=== PATIENT | male | born 1940 | race Caucasian/White ===

== ENCOUNTER 2020-02-17 15:59 | Emergency (ER) | payer MEDICARE, SELFPAY ==
[2020-02-17 16:10] VITALS: BP 138/82; PULSE 118; RESP 20; TEMP 36.6; O2SAT 100
--- NOTE | 2020-02-17 16:35 | ED.WOUNDLAC ---
HPI - Wound/Laceration General Chief Complaint: Wound/Laceration Stated Complaint: Laceration on eyebrow Time Seen by Provider: 02/17/20 16:19 Source: patient, family and RN notes reviewed Mode of arrival: ambulatory Limitations: dementia and other (Parkinson's) History of Present Illness HPI narrative: Patient presents today with an injury to the right eyebrow/forehead that was sustained around 8:00 this morning. states patient was in the garage and she is unsure of the mechanism of his injury. Patient has history of dementia and Parkinson's and is unclear on the mechanism as well. Denies loss of consciousness. Denies neck pain, current headache, dizziness, lightheadedness, vision changes, nausea or vomiting. He is currently pain-free. He does not take blood thinners or aspirin. He is up-to-date on his tetanus vaccine. Related Data Home Medications Medication Instructions Recorded Confirmed alogliptin 25 mg tablet 25 mg PO DAILY 07/10/19 02/17/20 carbidopa 25 mg-levodopa 100 mg 1 tablet PO QID tablet 07/10/19 02/17/20 tablet carbidopa 50 mg-levodopa 200 1 tablet PO Q4H tablet 07/10/19 02/17/20 mg-entacapone 200 mg tablet finasteride 5 mg tablet 5 mg PO DAILY 07/10/19 02/17/20 metformin 1,000 mg tablet 1,000 mg PO BID 07/10/19 02/17/20 pramipexole 1.5 mg tablet 0.375 mg PO TID tablet 07/10/19 02/17/20 venlafaxine 75 mg tablet 75 mg PO DAILY 07/10/19 02/17/20 vit C 250 mg-E 200 unit-zinc 40 1 tablet PO BID 07/10/19 02/17/20 mg-copper 1 vf-ahuhld-jofvyr capsule Allergies Allergy/AdvReac Type Severity Reaction Status Date / Time levofloxacin Allergy Unknown Delirium Verified 07/10/19 16:13 Penicillins Allergy Unknown Urticaria Verified 07/10/19 16:13 Review of Systems Review of Systems: Narrative: CONSTITUTIONAL: Denies body aches, fever, chills, or sweats. EYES: Denies visual changes, redness, or discharge. ENT: Denies rhinorrhea, congestion, sore throat, or otalgia. CARDIOVASCULAR: Denies chest pain, palpitations, or edema. RESPIRATORY: Denies cough or dyspnea. GASTROINTESTINAL: Denies abdominal pain, nausea, vomiting, or diarrhea. GENITOURINARY: Denies dysuria or hematuria. SKIN: Denies rash, itching. + Wound to right eyebrow MUSCULOSKELETAL: Denies back pain, joint pain, or myalgia. NEUROLOGIC: Denies headache, numbness, tingling, or weakness. PSYCH: Denies depression or anxiety. [facility] Past Medical History Medical History (Updated 02/17/20 @ 16:41 by Patricia Barba, [facility], ) Benign prostatic disease Benign prostatic hyperplasia BPH w/o urinary obs/LUTS Chronic left shoulder pain Dementia, unspecified, without behavioral disturbance Depression Dyslipidemia Hypercholesterolemia Hypomagnesemia Insomnia Macular degeneration Parkinson disease Type 2 diabetes mellitus without complication, without long-term current use of insulin Surgical History Surgical History History of brain surgery deep brain stimulation Social History Social History Smoking status: Former smoker Second hand tobacco smoke exposure: No Smoking end date: 06/26/79 Alcohol intake: current Substance use: never Substance use type: does not use Gender identity (if verbalized by the patient): Male Comments At time of signature, I have reviewed and agree with nursing past medical, surgical, social and family history unless otherwise noted. Please see nursing chart for further information. There is no relevant family history pertinent to the presenting complaint Exam Narrative: Exam Narrative: GENERAL: Well-appearing, well-nourished, and in no acute distress. HEAD: Normocephalic, atraumatic. EYES: EOMI. PERRL. No redness or drainage. Conjunctivae normal.. Moderate hematoma to the right eyebrow with a 2 x 0.5 cm linear skin avulsion. No active bleeding. No tenderness to the orbit. ENT: Mu
== END 2020-02-17 16:48 | disposition home or self-care (01) ==
PROVIDERS: Emergency Provider Nurse Practitioner; PCP Family Medicine
DX: S01.101A Unspecified open wound of right eyelid and periocular area, initial encounter (principal); X58.XXXA Exposure to other specified factors, initial encounter; Z87.891 Personal history of nicotine dependence; N40.0 Benign prostatic hyperplasia without lower urinary tract symptoms; F32.9 Major depressive disorder, single episode, unspecified; E78.5 Hyperlipidemia, unspecified; E78.00 Pure hypercholesterolemia, unspecified; G20 Parkinson's disease; F02.80 Dementia in other diseases classified elsewhere, unspecified severity, without behavioral disturbance, psychotic disturbance, mood disturbance, and anxiety; E11.9 Type 2 diabetes mellitus without complications; H35.30 Unspecified macular degeneration; Z79.84 Long term (current) use of oral hypoglycemic drugs
CPT/HCPCS: 99212; G0463

== ENCOUNTER 2020-12-21 10:00 | Outpatient (RCR) | payer MEDICARE, SELFPAY ==
--- NOTE | 2020-11-16 13:49 | PTOPEVAL ---
PHYSICAL THERAPY EVALUATION AND PLAN OF CARE Thank you for referring Alejandro Oliva to [facility].? The patient is scheduled to be seen for therapy? 1-2x/week for 4 weeks to accommodate patient's schedule. Please review, sign, date and return this plan of care BELINDA. I agree with and certify that the following plan of care is medically necessary. Referring Physician Date Attending Provider: Gracy Meza NP Evaluation Outpatient Past Medical History Neurological History Hx Cerebrovascular Accident (CVA) Yes Hx Dementia Yes Hx Parkinson's Disease Yes: deep brain stimulator Cardiovascular History Hx Hypercholesterolemia Yes Hx Hypertension Yes Diagnosis Parkinson's Disease Onset 2003 Subjective Information Alejandro is here today with Query Text:As Reported By Patient/ diagnosis of Parkinson's Family Disease with increased unsteadiness on his feet and frequent falls. His assists him with dressing and bathing and other ADLs. She is in the house for safety. He has a deep brain stimulator and takes carbadopa-levadopa QID and two other parkinson's medications. States that the last time he fell yeseterday and has had ~30 falls in the last month. States that his feet freeze before he falls. States he usually gets up off the floor himself, but sometimes his helps him get up. Reports he has no injuries from these falls. States that his left shoulder has been hurting and he has burning teeth. symptoms of PD: tremor of hands, freezing gait, decreased voice loudness, decreased amplitude; Prior Level of Function Home Setting Environmental Barriers Elevator Cargiver Responsibilities Comment uses a U step wheeled walker; has a chair lift Mobility Assistive Devices (Used Last 3 Walker, Wheeled Months) Pain Assessment Timing of Pain Assessment Timing of Pain Assessment Assessment Self Report Self Report Pain Level 0 Pain Score Pain Score 0: Self Report Additional Pain Score Comments does have back pain that
--- NOTE | 2020-12-23 08:24 | PCPTNOTE ---
Patient called & cancelled scheduled appointment this date due having outpatient surgery this morning. I will call back to follow-up and determine next steps for therapy.
--- NOTE | 2021-01-05 08:54 | PCPTNOTE ---
Patient arrived to participate in physical therapy re-assessment. notified me that he was in the hospital Monday night, 01/03, for chest pain. They found a Pulmonary embolism. He was discharged from ED with blood thinners and instructions to follow-up with primary care physician. Patient reports that he continues to have chest pain and pain when he takes a deep breath. He was willing to participate in physical therapy; however, due to findings of ED visit, I need a clearance from PCP to continue physical therapy. He has an appointment with PCP on , 01/07. and patient state understanding the need to cancel this appointment and will call after appointment with PCP to determine further therapy needs at this time.
--- NOTE | 2021-01-21 17:07 | PCPTNOTE ---
PHYSICAL THERAPY DISCHARGE NOTE Attending Provider: Gracy Meza NP Patient:Alejandro Oliva Date of :1940 Patient has not returned for any further treatments since 12/21/2020, therefore he will be discharged at this time. Patient?s initial visit was on 11/16/2020. He arrived to an appointment on 01/05/2021 after a hospitalization with findings of a PE. I informed patient that I would need him to follow up with physician prior to being able to participate in physical therapy. We have not heard from him or his since this time. Thank you for referring this patient to [facility]. Please review, sign, date and return this discharge summary BELINDA. I have been updated about the patient's current status and I agree with discharge from the above service at this time. Referring Physician Date
== END 2021-02-02 13:42 | disposition home or self-care (01) ==
LOC: ANHPT 10:00
PROVIDERS: PCP Family Medicine; Visit Provider Nurse Practitioner
DX: G20 Parkinson's disease (principal); R26.81 Unsteadiness on feet
CPT/HCPCS: 97110; 97116; 97162

== ENCOUNTER 2021-01-03 14:20 | Emergency (ER) | payer MEDICARE, SELFPAY ==
[2021-01-03] VITALS (14 sets, daily range): BP systolic 109–145; BP diastolic 62–75; PULSE 66–84; RESP 16–24; TEMP 36.1; O2SAT 96–100
--- NOTE | ~2021-01-03 | CT_ITS ---
EXAMINATION: CTA chest PE abdomen pel DATE: 01/03/2021 19:13 CDT INDICATION: Chest and abdomen pain TECHNIQUE: Computed tomographic angiography (CTA) of the chest, abdomen, and pelvis was performed wit hout and with 100 mL Omnipaque-350 intravenous contrast. The dose-length product was 688.37 mGy-cm. M aximum intensity projection 3D-reconstructions of the aorta and other arteries were constructed by jonathan e technologist on a separate workstation. Automated exposure control and iterative reconstruction elijah hnique were employed. COMPARISON: None. FINDINGS: CHEST CTA: Study is technically adequate. There are filling defects in right upper lobe segmental pulmonary nickolas yesenia, consistent with pulmonary embolism, small thrombus burden. Mild atherosclerosis of the aorta an d coronary arteries. Cardiomegaly. No significant pleural or pericardial effusion. No thoracic lympha denopathy. No endobronchial lesions. Dependent atelectasis. No suspicious pulmonary nodules or masses . ABDOMEN AND PELVIS CTA: Fatty infiltration of the liver. There are gallstones. Calcified granulomas of the spleen. The pancre as and adrenal glands are unremarkable. There are bilateral renal cysts, largest in the right kidney measuring 4.8 cm. There is atherosclerosis. Small hiatal hernia. No evidence for aneurysm. Moderate c olonic fecal loading. Fat-containing left inguinal hernia. Prostate gland is enlarged. No lymphadenop athy. Mild thickening of the gastric wall, likely due to underdistention. No free air or free fluid. There are changes of spinal fusion at L2-S1. There is retrolisthesis at L3-4. There are laminectomy c hanges at L3-L5. There is lucency surrounding the pedicle screws at L2, suspicious for loosening. IMPRESSION: 1. Filling defects right upper lobe segmental pulmonary arteries, consistent with pulmonary embolism, small thrombus burden. 2: Cholelithiasis. Reviewed, dictated and finalized at location A. IMPRESSION: 1. Filling defects right upper lobe segmental pulmonary arteries, consistent wi pulmonary embolism, small thrombus burden. 2: Cholelithiasis.
--- NOTE | ~2021-01-03 | XR_ITS ---
XR chest 2V 01/03/2021 14:59 Indication: Chest pain and cough for 4-5 days Procedure: AP and lateral views of the chest Comparison: 07/13/2018 Findings: There is a battery pack with leads overlying the left thorax. Heart size normal. Shallow in spiration with crowding of the pulmonary vessels. No focal air space disease, pulmonary edema, pleura l effusion or suspected pneumothorax. Moderate glenohumeral joint osteoarthritis on the left. Impression: 1: No acute cardiopulmonary disease. Reviewed, dictated and finalized at location A. Impression: 1: No acute cardiopulmonary disease.
--- NOTE | 2021-01-03 14:30 | ECG_ITS ---
Measurements Intervals [place] Rate: 78 P: 129 OH: 159 QRS: 21 QRSD: 146 T: 11 QT: 385 QTc: 439 Interpretive Statements SINUS RHYTHM RIGHT BUNDLE BRANCH BLOCK BASELINE ARTIFACT- I, II, III, AVR, AVL, AVF, V1-V6 ABNORMAL ECG Electronically Signed On 01-03-2021 18:27:22 CDT by Willian Calzada D.O.
[2021-01-03 15:38] LABS: Basophils Percent Auto 0.6 % (0.2-1.2); Eosinophils Absolute Auto 0.1 K/mm3 (0-0.3); Hematocrit 35.7 % (42.0-52.0); Hemoglobin 11.1 g/dL (14.0-18.0); Immature Granulocyte Absolute 0.03 K/mm3 (0.00-0.031); Immature Granulocyte Percent A 0.4 % (0-0.5); Lymphocytes Absolute Auto 1.23 K/mm3 (0.9-3.2); Lymphocytes Percent Auto 17.7 % (18.3-44.2); Mean Corpuscular HGB Conc 31.1 g/dl (32-36); Mean Corpuscular Volume 93.2 fl (80-100); Mean Platelet Volume 10.7 fl (7.4-10.4); Monocytes Absolute Auto 0.5 K/mm3 (0.1-0.6); Monocytes Percent Auto 6.8 % (2.6-8.5); Neutrophils Percent Auto 72.5 % (45.5-73.1); Platelet Count Result 210 k/mm3 (150-375); Red Blood Count 3.83 M/mm3 (4.6-6.20); Red Cell Distribution Width 14.4 % (11.5-14.5); White Blood Count 6.9 K/mm3 (4.5-10.0)
[2021-01-03 15:50] LABS: Anion Gap 11 mmol/L (8-16); Blood Urea Nitrogen 34 mg/dL (9-20); Calcium 9.4 mg/dL (8.4-10.2); Carbon Dioxide 23 mmol/L (22-30); Chloride 103 mmol/L (98-107); Estimated CRCL calculation 57 ml/min; Estimated Glomerular Filt Rate > 60; Glucose 351 mg/dL (75-110); Potassium 4.7 mmol/L (3.4-5.0); Sodium 137 mmol/L (137-145)
[2021-01-03 16:02] LABS: Troponin I < 0.012 ng/mL (0.000-0.034)
[2021-01-03 16:06] LABS: Prothrombin Time 12.6 Seconds (11.1-14.7)
[2021-01-03 16:08] LABS: Partial Thromboplastin Time 27.5 SECONDS (22.3-36.8)
--- NOTE | 2021-01-03 18:02 | ED.CHESTPAIN ---
HPI - Chest Pain General Chief Complaint: Chest Pain Stated Complaint: chest pain for 5 days after lifting Time Seen by Provider: 01/03/21 17:46 Source: patient, family and RN notes reviewed Mode of arrival: ambulatory Limitations: other (parkinsons) History of Present Illness HPI narrative: This is a 80 year old male with history of Parkinson's , DM who presens for evaluation of midsternal chest pain. Patient is presents with . She states patient lifting heavy bag on Grout on . Patient has been complaining intermittent nonradiating midsternal chest pain. He states this pain last for a few minutes. He notices his pain when he leans forward and when he coughs. He denies nausea,vomiting, dizziness or shortness of breath. HE does reports a mild cough. He has been taking tylenol for his pain and he states this helps. He denies cardiac history Related Data Home Medications Medication Instructions Recorded Confirmed alogliptin 25 mg tablet 25 mg PO DAILY 07/10/19 12/22/20 carbidopa 25 mg-levodopa 100 mg 1 tablet PO QID tablet 07/10/19 12/22/20 tablet finasteride 5 mg tablet 5 mg PO DAILY 07/10/19 12/22/20 metformin 1,000 mg tablet 1,000 mg PO BID 07/10/19 12/22/20 pramipexole 1.5 mg tablet 0.375 mg PO TID tablet 07/10/19 12/22/20 venlafaxine 75 mg tablet 75 mg PO DAILY 07/10/19 12/22/20 vit C 250 mg-vit E 90 mg-zinc 40 1 tablet PO BID 07/10/19 12/22/20 mg-copper 1 [id number] capsule carbidopa ER 50 mg-levodopa 200 mg 1 tablet PO QID 10/12/20 12/22/20 tablet,extended release donepezil 10 mg tablet 10 mg PO QHS 10/12/20 12/22/20 entacapone 200 mg tablet 200 mg PO QID tablet 10/12/20 12/22/20 melatonin 10 mg capsule 20 mg PO QHS cap 10/12/20 12/22/20 empagliflozin 25 mg tablet 12.5 mg PO DAILY tablet 12/22/20 12/22/20 Allergies Allergy/AdvReac Type Severity Reaction Status Date / Time levofloxacin Allergy Unknown Delirium Verified 01/03/21 14:25 Penicillins Allergy Unknown Urticaria Verified 01/03/21 14:25 Review of Systems Review of Systems: All systems reviewed & are unremarkable except as noted in HPI and below PMFSH Past Medical History Medical History BPH w/o urinary obs/LUTS Chronic left shoulder pain Dementia, unspecified, without behavioral disturbance Depression Dyslipidemia Hypercholesterolemia Hypomagnesemia Insomnia Macular degeneration Parkinson disease Type 2 diabetes mellitus without complication, without long-term current use of insulin Surgical History Surgical History History of brain surgery deep brain stimulation Family History Family History Mother Diabetes mellitus Father Family history of cardiovascular disease Other Family history of malignant neoplasm Social History Social History Smoking status: Former smoker Second hand tobacco smoke exposure: No Smoking end date: 06/26/79 Alcohol intake: current Alcohol use details: consumes 1 glass of wine weekly Substance use: never Substance use type: does not use Gender identity (if verbalized by the patient): Male Exam Const: General: alert Orientation/consciousness: patient oriented x3 Eyes: EOM: EOMs intact bilaterally Resp: Effort & Inspection: normal respiratory effort and no retractions Auscultation: clear to auscultation bilaterally Cardio: Rate: regular rate Rhythm: regular rhythm Heart sounds: no murmurs GI: GI Palp: Yes Soft to palpation, No Tenderness to palpation present (GI) and No Guarding due to palpation present (GI) Auscultation: normal bowel sounds Skin: General skin exam: normal color Rashes: no rashes Neuro: General: patient oriented x3, moves all extremities and CN's II-XI intact bilaterally Other: tremors Course Reevaluati
[2021-01-03 18:13] LABS: Troponin I < 0.012 ng/mL (0.000-0.034)
[2021-01-03 18:25] LABS: D Dimer 1.43 ug/mL (<0.48); Lipase 526 U/L (23-300)
[2021-01-03] MEDS: ENOXAPARIN 80 MG/0.8 ML SYRINGE 70 MG SUB-Q (19:43)
--- NOTE | 2021-01-03 22:16 | PC.NURSE ---
Not in room at present. ama form signed and ED Charge and ED MD aware. IV removed with catheter intact.
--- NOTE | 2021-01-04 03:34 | PC.NURSE ---
Pt's used call light and informed ed dental secretary she wanted to leave and take pt home. this RN to pt room and pt's stated It's been 7 hours and no one has waited on us and nothing is happening and i'm going to take hime home. it's been 7 hours. it's taking too long. This RN apologized and requested to let ED MD know family concerns. after discussion with ED MD, pt's , and return call from pt's pcp, pt and left dept in [place].
== END 2021-01-03 21:44 | disposition left against medical advice (07) ==
LOC: ANHED 20:23 → ANH3MEDSUR 21:49
PROVIDERS: Emergency Medicine; Emergency Provider General Practice; PCP Family Medicine
DX: I26.99 Other pulmonary embolism without acute cor pulmonale (principal); R07.2 Precordial pain; G20 Parkinson's disease; E11.9 Type 2 diabetes mellitus without complications; N40.0 Benign prostatic hyperplasia without lower urinary tract symptoms; F03.90 Unspecified dementia, unspecified severity, without behavioral disturbance, psychotic disturbance, mood disturbance, and anxiety; E78.5 Hyperlipidemia, unspecified; H35.30 Unspecified macular degeneration; Z79.84 Long term (current) use of oral hypoglycemic drugs; Z87.891 Personal history of nicotine dependence; K80.20 Calculus of gallbladder without cholecystitis without obstruction; I45.10 Unspecified right bundle-branch block
CPT/HCPCS: 36415; 71046; 71275; 74177; 80048; 83690; 84484; 85025; 85380; 85610; 85730; 93005; 96372; 99284; J1650; Q9967

== ENCOUNTER 2021-02-05 10:06 | Outpatient (CLI) | payer MEDICARE, SELFPAY ==
--- NOTE | ~2021-02-05 | US_ITS ---
EXAMINATION: US thyroid DATE: 02/05/2021 10:39 INDICATION: Nontoxic single thyroid nodule. TECHNIQUE: Multiple ultrasound images of the thyroid were obtained. COMPARISON: None. FINDINGS: The right thyroid lobe measures 4.4 x 2.1 x 2.1 cm. The left thyroid lobe measures 3.8 x 2.2 x 1.9 c m. In the right thyroid lobe, there is a 9 mm predominantly solid, isoechoic, mvkba-gjlh-eonr nodule with lobulated margin without echogenic foci (TI-RADS TR4). In the right thyroid lobe, there is a 13 mm mixed cystic and solid, hypoechoic, aikkz-cwuo-jijw nodule with smooth margin without echogenic f oci (TR3). In the left thyroid lobe, there is a 9 mm mixed cystic and solid, hypoechoic, sheup-ihtl-s all nodule with smooth margin without echogenic foci (TR3). There are smaller subcentimeter nodules i n the thyroid. IMPRESSION: 1. Small thyroid nodules, likely not clinically significant. No follow-up is needed. Reviewed, dictated and finalized at location A. IMPRESSION: 1. Small thyroid nodules, likely not clinically significant. No follow-up is ne eded.
== END 2021-02-05 10:07 | disposition home or self-care (01) ==
PROVIDERS: PCP Family Medicine; Visit Provider Family Medicine
DX: E04.2 Nontoxic multinodular goiter (principal)
CPT/HCPCS: 76536

== ENCOUNTER 2021-02-11 15:10 | Outpatient (CLI) | payer MEDICARE, SELFPAY ==
[2021-02-11 15:40] LABS: INR 2.1; Prothrombin Time 22.9 Seconds (11.1-14.7)
== END 2021-02-11 15:11 | disposition home or self-care (01) ==
PROVIDERS: PCP Family Medicine; Visit Provider Family Medicine
DX: Z51.81 Encounter for therapeutic drug level monitoring (principal); Z79.01 Long term (current) use of anticoagulants
CPT/HCPCS: 36415; 85610

== ENCOUNTER 2021-02-25 15:34 | Emergency (ER) | payer OTHER, MEDICARE, SELFPAY ==
[2021-02-25] VITALS (22 sets, daily range): BP systolic 141–181; BP diastolic 69–93; PULSE 90–107; RESP 14–37; O2SAT 98–100
--- NOTE | ~2021-02-25 | CT_ITS ---
EXAMINATION: CT brain wo con DATE: 02/25/2021 16:21 INDICATION: Altered mental status. TECHNIQUE: Computed tomography (CT) of the head was performed without intravenous contrast. The mA wa s adjusted according to patient size. Iterative reconstruction technique was employed. The dose-lengt h product was 605.33 mGy-cm. COMPARISON: None FINDINGS: There are bilateral deep brain stimulators. The right-sided implant tip is in the right constanza tiform nucleus. The left-sided implant tip abuts the superior aspect of the medial left temporal lobe . There is chronic encephalomalacia in the frontal lobes along the course of the electrodes. There is no intracranial hemorrhage, acute infarction, or abnormal intracranial mass lesion. The ventricles a re normal in size. There is mild mucosal thickening in the paranasal sinuses. The mastoid air cells a re normal. There are likely changes of ocular lens replacement surgeries. IMPRESSION: 1. Chronic encephalomalacia in the frontal lobes along the deep brain stimulators. Reviewed, dictated and finalized at location A. IMPRESSION: 1. Chronic encephalomalacia in the frontal lobes along the deep brain stimulato rs.
--- NOTE | ~2021-02-25 | XR_ITS ---
EXAMINATION: XR shunt series DATE: 02/25/2021 18:08 INDICATION: Head and neck injury. TECHNIQUE: 5 views of a shunt series were obtained. COMPARISON: Chest 2 views 01/03/2021 FINDINGS: The chest demonstrates clear lungs without pneumonia, pleural effusion, or pneumothorax. Th e heart size is normal. There are deep brain stimulators bilaterally with electronic device in left a nterior chest. There are changes of posterior fusion procedure in lumbosacral spine. IMPRESSION: 1. Deep brain stimulators present. Reviewed, dictated and finalized at location A.
--- NOTE | ~2021-02-25 | CT_ITS ---
EXAMINATION: CT cervical spine wo con DATE: 02/25/2021 16:21 INDICATION: Neck injury. Fall down stairs. TECHNIQUE: Computed tomography (CT) of the cervical spine was performed without intravenous contrast. Automated exposure control and iterative reconstruction technique were employed. The dose-length pro duct was 242.17 mGy-cm. 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 There is 6 mm anterolisthesis of C2 on C3. C1 r ing is developmentally small with moderate central canal stenosis. There is 2 mm retrolisthesis of C3 on C4 and C5 on C6 and 2 mm anterolisthesis of C7 on T1. There is mild chronic anterior wedging of C 3 vertebral body. There is mild chronic height loss of C4-C7 vertebral bodies. There is severely decr eased disc height from C2-C3 through C6-C7 with endplate remodeling. 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 There is severe bi lateral facet joint osteoarthritis. There is moderate bilateral neural foraminal stenosis. There is m oderate central canal stenosis. C3-C4: There is severe bilateral uncovertebral joint osteoarthritis. There is severe bilateral facet joint osteoarthritis. There is moderate right and mild left neural foraminal stenosis. There is mild central canal stenosis. C4-C5: There is severe bilateral uncovertebral joint osteoarthritis. There is severe bilateral facet joint osteoarthritis. There is mild right and moderate left neural foraminal stenosis. There is mild central canal stenosis. C5-C6: There is severe bilateral uncovertebral joint osteoarthritis. There is mild bilateral facet adilson int osteoarthritis. There is moderate bilateral neural foraminal stenosis. There is mild central leonardo l stenosis. C6-C7: There is severe bilateral uncovertebral joint osteoarthritis. There is severe bilateral facet joint osteoarthritis. There is mild bilateral neural foraminal stenosis. There is mild central canal stenosis. C7-T1: There is no uncovertebral joint osteoarthritis. There is severe bilateral facet joint osteoart hritis. There is mild left neural foraminal stenosis. There is no central canal stenosis. IMPRESSION: 1. No fracture. 2. Severe cervical spondylosis. Reviewed, dictated and finalized at location A.
--- NOTE | 2021-02-25 16:11 | PC.NURSE ---
Pt off floor to CT scan
--- NOTE | 2021-02-25 16:16 | PC.NURSE ---
patient CANNOT receive MRI due to deep brain stimulator
[2021-02-25 16:43] LABS: Basophils Percent Auto 0.4 % (0.2-1.2); Eosinophils Absolute Auto 0.1 K/mm3 (0-0.3); Eosinophils Percent Auto 1.8 % (0-4.4); Hematocrit 40.1 % (42.0-52.0); Hemoglobin 12.5 g/dL (14.0-18.0); Immature Granulocyte Absolute 0.02 K/mm3 (0.00-0.031); Immature Granulocyte Percent A 0.4 % (0-0.5); Lymphocytes Absolute Auto 1.32 K/mm3 (0.9-3.2); Lymphocytes Percent Auto 23.1 % (18.3-44.2); Mean Corpuscular HGB Conc 31.2 g/dl (32-36); Mean Corpuscular Hemoglobin 28.2 pg (26-34); Mean Corpuscular Volume 90.3 fl (80-100); Mean Platelet Volume 10.2 fl (7.4-10.4); Monocytes Absolute Auto 0.5 K/mm3 (0.1-0.6); Monocytes Percent Auto 8.1 % (2.6-8.5); Neutrophils Absolute Auto 3.8 K/mm3 (1.3-6.7); Neutrophils Percent Auto 66.2 % (45.5-73.1); Platelet Count Result 227 k/mm3 (150-375); Red Blood Count 4.44 M/mm3 (4.6-6.20); Red Cell Distribution Width 14.2 % (11.5-14.5); White Blood Count 5.7 K/mm3 (4.5-10.0)
[2021-02-25] MEDS: MORPHINE SULFATE (*CRX) 4 MG/ML INJ IV PUSH (16:43)
[2021-02-25] MEDS: ONDANSETRON INJ 4 MG/2 ML VIAL IV PUSH (16:43)
[2021-02-25 16:53] LABS: INR 1.7; Prothrombin Time 19.6 Seconds (11.1-14.7)
[2021-02-25 16:57] LABS: Anion Gap 8 mmol/L (8-16); Blood Urea Nitrogen 36 mg/dL (9-20); Carbon Dioxide 27 mmol/L (22-30); Chloride 106 mmol/L (98-107); Potassium 4.4 mmol/L (3.4-5.0); Sodium 141 mmol/L (137-145)
[2021-02-25 16:58] LABS: Estimated Glomerular Filt Rate > 60; Glucose 166 mg/dL (65-110)
[2021-02-25] MEDS: HYDROcodone/acetaminophen (*CRX) 5-325 MG TABLET 1 TAB PO (17:22)
--- NOTE | 2021-02-25 18:48 | PC.NURSE ---
patient oriented x2 at baseline per . Pt reports gonzalez in his vision prior to fall.
--- NOTE | 2021-02-25 18:51 | PC.NURSE ---
aware of pain reassessment. He has spoked to neurologist who says this pain is also chronic.
--- NOTE | 2021-02-25 19:18 | ED.FALL ---
HPI - Fall General Chief Complaint: Fall Stated Complaint: Fall/HI Time Seen by Provider: 02/25/21 16:12 Source: patient and family Mode of arrival: wheelchair Limitations: clinical condition History of Present Illness HPI Narrative: 80-year-old with a history of Parkinson's disease with deep brain stimulator, gait abnormality, hypertension, diabetes here with complaints of fall from the stairs. Patient reports that he became clumsy he lost his balance and fell down the stairs. Denies loss of consciousness. Complains of neck pain. Patient is presently on warfarin for PEs. Patient states that he gets electrical shocks in his head which is been ongoing for quite some time. MD complaint: fall Onset (ago): hour(s) (1) Fall from: standing Fall witnessed: yes, by family Place fall occurred: home Loss of consciousness: none Symptoms prior to fall: other (Unstable gait) Location of injury: head and neck Severity: moderate Quality: aching Associated symptoms (after fall): headache Related Data Home Medications Medication Instructions Recorded Confirmed alogliptin 25 mg tablet 25 mg PO DAILY 07/10/19 01/26/21 finasteride 5 mg tablet 5 mg PO DAILY 07/10/19 01/26/21 metformin 1,000 mg tablet 1,000 mg PO BID 07/10/19 01/26/21 venlafaxine 75 mg tablet 75 mg PO DAILY 07/10/19 01/26/21 vit C 250 mg-vit E 90 mg-zinc 40 1 tablet PO BID 07/10/19 01/26/21 mg-copper 1 [id number]-cokyfg-qdfbxg capsule donepezil 10 mg tablet 10 mg PO QHS 10/12/20 01/26/21 entacapone 200 mg tablet 200 mg PO .5XD tablet 01/07/21 01/26/21 pramipexole 1.5 mg tablet 0.375 mg PO QID tablet 01/07/21 01/26/21 simvastatin 10 mg tablet 10 mg PO QHS tablet 01/07/21 01/26/21 carbidopa 25 mg-levodopa 100 mg 2 tablet PO .5 times a day tablet 01/26/21 01/26/21 tablet Allergies Allergy/AdvReac Type Severity Reaction Status Date / Time levofloxacin Allergy Unknown Delirium Verified 02/25/21 16:06 Penicillins Allergy Unknown Urticaria Verified 02/25/21 16:06 Review of Systems Review of Systems: All systems reviewed & are unremarkable except as noted in HPI and below Constitutional: Constitutional: Reports no additional constitutional complaints Eyes: Eyes: Reports no additional eye complaints Cardiovascular: Cardiovascular: Reports no additional cardiovascular complaints Respiratory: Respiratory: Reports no additional respiratory complaints Gastrointestinal: Gastrointestinal: Reports no additional gastrointestinal complaints Musculoskeletal: Musculoskeletal: Reports no additional musculoskeletal complaints Integumentary/Breasts: Skin/Breast: Reports system reviewed and no additional complaints, except as docu Neurologic: Reports as per HPI Endocrine: Endocrine: Reports no additional endocrine complaints PMFSH Past Medical History Medical History BPH w/o urinary obs/LUTS Chronic left shoulder pain Dementia, unspecified, without behavioral disturbance Depression Dyslipidemia Hypercholesterolemia Hypomagnesemia Insomnia Macular degeneration Parkinson disease Pulmonary embolism Type 2 diabetes mellitus without complication, without long-term current use of insulin Surgical History Surgical History History of brain surgery (~2012) deep brain stimulation Family History Family History Mother Diabetes mellitus Father Family history of cardiovascular disease Other Family history of malignant neoplasm Social History Social History Smoking status: Former smoker Second hand tobacco smoke exposure: No Smoking end date: 06/26/79 Alcohol intake: current Alcohol use details: consumes 1 glass of wine weekly Substance use: never Substance use type: does not use Gender identity (if verbalized by the patient): Male E
--- NOTE | 2021-02-25 19:30 | PC.NURSE ---
Incontinent of urine. Pt washed and new depends applied. No skin breakdown noted.
== END 2021-02-25 19:45 | disposition home or self-care (01) ==
PROVIDERS: Emergency Provider Family Medicine; PCP Family Medicine
DX: S09.90XA Unspecified injury of head, initial encounter (principal); F03.90 Unspecified dementia, unspecified severity, without behavioral disturbance, psychotic disturbance, mood disturbance, and anxiety; G20 Parkinson's disease; Z96.82 Presence of neurostimulator; E11.9 Type 2 diabetes mellitus without complications; H35.30 Unspecified macular degeneration; E78.5 Hyperlipidemia, unspecified; N40.0 Benign prostatic hyperplasia without lower urinary tract symptoms; Z86.711 Personal history of pulmonary embolism; Z79.84 Long term (current) use of oral hypoglycemic drugs; Z79.01 Long term (current) use of anticoagulants; Z87.891 Personal history of nicotine dependence; M47.812 Spondylosis without myelopathy or radiculopathy, cervical region; W10.9XXA Fall (on) (from) unspecified stairs and steps, initial encounter
CPT/HCPCS: 36415; 70250; 70450; 71045; 72125; 74018; 80048; 85025; 85610; 96374; 96375; 99284; A9270; J2270; J2405

== ENCOUNTER 2021-04-09 12:19 | Outpatient (RCR) | payer MEDICARE, SELFPAY ==
[2021-01-12 16:31] LABS: INR 1.1; Prothrombin Time 14.1 Seconds (11.1-14.7)
[2021-01-19 16:56] LABS: INR 1.9; Prothrombin Time 21.4 Seconds (11.1-14.7)
[2021-01-28 16:40] LABS: Basophils Percent Auto 0.6 % (0.2-1.2); Eosinophils Absolute Auto 0.1 K/mm3 (0-0.3); Eosinophils Percent Auto 1.6 % (0-4.4); Hematocrit 36.6 % (42.0-52.0); Hemoglobin 11.5 g/dL (14.0-18.0); Immature Granulocyte Absolute 0.02 K/mm3 (0.00-0.031); Immature Granulocyte Percent A 0.3 % (0-0.5); Lymphocytes Absolute Auto 1.48 K/mm3 (0.9-3.2); Mean Corpuscular HGB Conc 31.4 g/dl (32-36); Mean Corpuscular Hemoglobin 28.3 pg (26-34); Mean Corpuscular Volume 89.9 fl (80-100); Mean Platelet Volume 10.8 fl (7.4-10.4); Monocytes Absolute Auto 0.5 K/mm3 (0.1-0.6); Monocytes Percent Auto 7.1 % (2.6-8.5); Neutrophils Absolute Auto 4.3 K/mm3 (1.3-6.7); Neutrophils Percent Auto 67.4 % (45.5-73.1); Platelet Count Result 235 k/mm3 (150-375); Red Blood Count 4.07 M/mm3 (4.6-6.20); Red Cell Distribution Width 13.7 % (11.5-14.5); White Blood Count 6.4 K/mm3 (4.5-10.0)
[2021-01-28 16:54] LABS: INR 2.8; Prothrombin Time 28.6 Seconds (11.1-14.7)
[2021-01-28 17:17] LABS: Alanine Aminotransferase 12 U/L (4-50); Albumin Level 4.3 g/dL (3.5-5.1); Alkaline Phosphatase 101 U/L (38-126); Anion Gap 10 mmol/L (8-16); Aspartate Amino Transferase 27 U/L (17-59); Bilirubin,Total 0.4 mg/dL (0.2-1.3); Blood Urea Nitrogen 31 mg/dL (9-20); Calcium 9.9 mg/dL (8.4-10.2); Carbon Dioxide 27 mmol/L (22-30); Chloride 104 mmol/L (98-107); Estimated Glomerular Filt Rate > 60; Glucose 223 mg/dL (65-110); Magnesium 1.8 mg/dL (1.6-2.3); Sodium 141 mmol/L (137-145)
[2021-01-28 17:29] LABS: Hemoglobin A1C 8.9 % (<5.7)
[2021-01-28 18:33] LABS: Folic Acid > 20.0 ng/mL (2.76->20)
[2021-03-15 15:54] LABS: INR 1.4; Prothrombin Time 17.2 Seconds (11.1-14.7)
[2021-03-25 15:24] LABS: INR 2.2; Prothrombin Time 23.7 Seconds (11.1-14.7)
[2021-04-09 13:05] LABS: INR 2.2; Prothrombin Time 23.7 Seconds (11.1-14.7)
== END 2021-04-12 23:59 | disposition home or self-care (01) ==
LOC: ANHLAB 12:19
PROVIDERS: PCP Family Medicine; Visit Provider Family Medicine
DX: Z51.81 Encounter for therapeutic drug level monitoring (principal); E11.9 Type 2 diabetes mellitus without complications; Z79.01 Long term (current) use of anticoagulants
CPT/HCPCS: 36415; 80053; 82607; 82746; 83036; 83735; 85025; 85610